=== PATIENT | female | born 1960 | race Caucasian/White ===

== ENCOUNTER → 2021-11-09 | Day surgery (SDC) | payer MEDICARE, OTHER ==
[2021-11-08 13:37] VITALS: BMI 36.3
[~2021-11-09] MED LIST: LACTATED RINGERS 1,000 ML IV ONE; LACTATED RINGERS 1,000 ML IV SCH; LIDOCAINE 2% INJ 20 MG/ML (2 ML VIAL) ONE; PROPOFOL 10 MG/ML 20 ML VIAL IV ONE
--- NOTE | 2021-11-09 07:45 | P.GSHP ---
History of Present Illness H&P Date: 11/09/21 CHIEF COMPLAINT: Colon screen HISTORY OF PRESENT ILLNESS: The patient is a 61-year-old female who presents for colon screen. Lower endoscopy was offered for further evaluation and management. PAST MEDICAL HISTORY: Please see list. PAST SURGICAL HISTORY: Please see list. MEDICATIONS: Please see list. ALLERGIES: Please see list. SOCIAL HISTORY: No illicit drug use FAMILY HISTORY: No reports of Crohn disease or ulcerative colitis. REVIEW OF ORGAN SYSTEMS: CONSTITUTIONAL: No reports of fevers or chills. PHYSICAL EXAM: VITAL SIGNS: Stable GENERAL: Well-developed pleasant in no acute distress. HEENT: No scleral icterus. Extraocular movements grossly intact. Moist buccal mucosa. NECK: Supple without lymphadenopathy. CHEST: Unlabored respirations. Equal bilateral excursions. CARDIOVASCULAR: Regular rate and rhythm. Distal 2+ pulses. ABDOMEN: Soft, nontender, nondistended. MUSCULOSKELETAL: No clubbing, cyanosis, or edema. ASSESSMENT: 1. Colon screen. PLAN: 1. Recommend proceeding with a lower endoscopy Past Medical History Past Medical History: Hyperlipidemia, Hypertension, Skin Disorder, Thyroid Disorder Additional Past Medical History / Comment(s): Developmental delay, caregiver states "she's slow." Lives alone w/ caregiver next door to help. Current UTI, on po AB Rx x5 days, caregiver notified Dr Blake. Rash under abd folds. History of Any Multi-Drug Resistant Organisms: None Reported Past Surgical History: No Surgical Hx Reported Additional Past Surgical History / Comment(s): Colonoscopy Past Anesthesia/Blood Transfusion Reactions: No Reported Reaction Smoking Status: Never smoker - Past Family History Mother Family Medical History: Unable to Obtain Medications and Allergies Home Medications Medication Instructions Recorded Confirmed Type Aspirin EC [Ecotrin] 81 mg PO DAILY 09/05/15 11/08/21 History Levothyroxine Sodium [Synthroid] 75 mcg PO DAILY 09/05/15 11/08/21 History Lovastatin [Mevacor] 20 mg PO HS 09/05/15 11/08/21 History lisinopriL [Zestril] 10 mg PO DAILY 09/05/15 11/08/21 History Cholecalciferol [Vitamin D3 (25 50 mcg PO DAILY 11/08/21 11/08/21 History Mcg = 1000 Iu)] Metoprolol Tartrate [Lopressor] 25 mg PO DAILY 11/08/21 11/08/21 History Nitrofurantoin Monohyd/M-Cryst 100 mg PO Q12HR 11/08/21 11/08/21 History [Macrobid] Nystatin 100,000 Unit/gm Powd 1 applic TOPICAL BID PRN 11/08/21 11/08/21 History [Mycostatin Powder] Allergies Allergy/AdvReac Type Severity Reaction Status Date / Time No Known Allergies Allergy Verified 11/08/21 13:09
[2021-11-09 10:12] VITALS: BP 131/82; PULSE 81; RESP 16; TEMP 97.5
--- NOTE | 2021-11-09 14:42 | P.PCN ---
Date of Procedure: 11/09/21 Description of Procedure: PREOPERATIVE DIAGNOSIS: Abnormal colon stool test Colonoscopy screening POSTOPERATIVE DIAGNOSIS: Abnormal colon stool test Colonoscopy screening Tubular adenoma ascending colon Tubular adenoma transverse colon Tubular adenoma descending colon Sigmoid diverticulosis Internal hemorrhoids, grade 2 OPERATION: Colonoscopy to the ileocecal valve and appendiceal orifice, cecum Colonoscopy with cold forceps biopsy SURGEON: Cyndie Blake MD. ANESTHESIA: MAC. INDICATIONS: The patient is an 61-year-old male who presents family history of malignant colon polyps and personal history of colon polyps. Last colonoscopy 5 years. Benefits and risks were described and informed consent was obtained. DESCRIPTION OF PROCEDURE: The patient had undergone Sutab prep. The patient had been brought into the operating room and laid in the left lateral decubitus position. After adequate intravenous sedation, the rectum was examined with 2% lidocaine jelly. External hemorrhoids were encountered. The rectal tone was within normal limits. No lesions were palpated in the rectal vault. An Olympus colonoscope was advanced until the cecum, ileocecal valve and appendiceal orifice were clearly viewed. The prep was good. Sigmoid diverticulosis was encountered. Colonic polyps were found and removed. No evidence of focal colitis was found. Retroflexion of the scope demonstrated grade 2 internal hemorrhoids without active bleeding or inflammation. The colon was desufflated. The patient had tolerated the procedure well. Withdrawal time was over 6 minutes. FINDINGS: Aronchick preparation quality scale 2 (1-5) Internal hemorrhoids, grade 2 External hemorrhoids, grade 2 No arteriovenous malformations. Sigmoid diverticulosis Removal of 3 polyps: - Snare polypectomy ascending colon, 5 mm tubulovillous adenoma polyp. - Snare polypectomy of proximal transverse colon, 20 mm flat villous adenoma polyp, removed in piecemeal - Snare polypectomy 10 cm from the anal verge, 6 mm flat villous adenoma polyp, rectum No focal colitis. RECOMMENDATIONS: Given severity of tubular adenomas, recommend repeat colonoscopy 1 year, 2022 Plan - Discharge Summary Discharge Rx Participant: No New Discharge Prescriptions: Continue Lovastatin [Mevacor] 20 mg PO HS lisinopriL [Zestril] 10 mg PO DAILY Levothyroxine Sodium [Synthroid] 75 mcg PO DAILY Aspirin EC [Ecotrin Low Dose] 81 mg PO DAILY Cholecalciferol [Vitamin D3 (25 Mcg = 1000 Iu)] 50 mcg PO DAILY Nystatin 100,000 Unit/gm Powd [Mycostatin Powder] 1 applic TOPICAL BID PRN PRN Reason: rash in abd skin folds Nitrofurantoin Monohyd/M-Cryst [Macrobid] 100 mg PO Q12HR Metoprolol Tartrate [Lopressor] 25 mg PO DAILY Discharge Medication List Aspirin EC [Ecotrin Low Dose] 81 mg PO DAILY 09/05/15 [History] Levothyroxine Sodium [Synthroid] 75 mcg PO DAILY 09/05/15 [History] Lovastatin [Mevacor] 20 mg PO HS 09/05/15 [History] lisinopriL [Zestril] 10 mg PO DAILY 09/05/15 [History] Cholecalciferol [Vitamin D3 (25 Mcg = 1000 Iu)] 50 mcg PO DAILY 11/08/21 [History] Metoprolol Tartrate [Lopressor] 25 mg PO DAILY 11/08/21 [History] Nitrofurantoin Monohyd/M-Cryst [Macrobid] 100 mg PO Q12HR 11/08/21 [History] Nystatin 100,000 Unit/gm Powd [Mycostatin Powder] 1 applic TOPICAL BID PRN 11/08/21 [History] Follow up Appointment(s)/Referral(s): Cyndie Blake MD [STAFF PHYSICIAN] - 11/28/21 Patient Instructions/Handouts: *Surgery [facility] - (Anesthesia) Endoscopy Discharge Instructions, Diverticulosis (GEN), Colorectal Polyps (GEN), Diverticulosis Diet (GEN) Activity/Diet/Wound Care/Special Instructions: Repeat colonoscopy in one year, 2022 Discharge Disposition: HOME SELF-CARE
== END | disposition home or self-care (01) ==
LOC: ORWHC2ENDO 09:19
PROVIDERS: ATTEND Surgery Plastic and Reconstructive Surgery
DX: Z12.11 Encounter for screening for malignant neoplasm of colon (principal); K57.30 Diverticulosis of large intestine without perforation or abscess without bleeding; K64.8 Other hemorrhoids; D12.2 Benign neoplasm of ascending colon; D12.3 Benign neoplasm of transverse colon; D12.4 Benign neoplasm of descending colon; E78.5 Hyperlipidemia, unspecified; I10 Essential (primary) hypertension; Z79.82 Long term (current) use of aspirin; Z79.899 Other long term (current) drug therapy; Z80.0 Family history of malignant neoplasm of digestive organs; Z87.440 Personal history of urinary (tract) infections
CPT/HCPCS: 45385; 88305; J2704; J2001